=== PATIENT | male | born 1965 | race Caucasian/White ===

== ENCOUNTER 2022-06-24 08:09 | Outpatient (CLI) | payer OTHER, SELFPAY ==
[2022-06-24 08:21] LABS: Basophils Absolute Auto 0.03 K/mm3 (0.00-0.10); Basophils Percent Auto 0.4 % (0.0-1.0); Eosinophils Absolute Auto 0.35 K/mm3 (0.02-0.50); Eosinophils Percent Auto 4.6 % (1.0-6.0); Hematocrit 45.3 % (40.0-54.0); Hemoglobin 15.4 g/dL (14.0-18.0); Immature Granulocyte Absolute 0.05 K/mm3 (0.00-0.00); Immature Granulocyte Percent A 0.7 % (0.0-0.0); Lymphocytes Absolute Auto 1.92 K/mm3 (1.10-4.50); Lymphocytes Percent Auto 25.2 % (18.0-42.0); Mean Corpuscular Hemoglobin 32.8 pg (27.0-31.0); Mean Corpuscular Volume 96.6 fL (78.0-102.0); Mean Platelet Volume 8.8 fl (8.7-11.0); Monocytes Absolute Auto 0.73 K/mm3 (0.10-0.90); Monocytes Percent Auto 9.6 % (2.0-11.0); Neutrophils Absolute Auto 4.5 K/mm3 (1.7-7.2); Neutrophils Percent Auto 59.5 % (50.0-70.0); Platelet Count Result 149 K/mm3 (150-420); Red Blood Count 4.69 M/mm3 (4.70-6.10); White Blood Count 7.6 K/mm3 (4.8-10.8)
[2022-06-24 08:22] LABS: Add Urine Microscopic? YES; Appearance Urine Clear (Clear); Bilirubin Urine Negative (Negative); Blood Urine 1+ (Negative); Color Urine Light Yellow (Yellow); Glucose Urine UA Negative (Negative); Ketones Urine Negative (Negative); Leukocyte Esterase Ur Negative LEU/UL (Negative); Nitrate Urine Negative (Negative); Protein Urine Negative (Negative); Specific Grav Ur 1.025 (1.010-1.020); Urobilinogen Urine 0.2 mg/dL (0.2-1.0)
[2022-06-24 08:27] LABS: Bacteria Urine Noted /hpf; RBC Urine 0-2 /hpf (0-2); Squamous Epithelial Cell Urine Occasional /hpf (Few); WBC Urine None seen /hpf (0-3)
[2022-06-24 08:31] LABS: Hemoglobin A1C 5.1 % (<5.7)
[2022-06-24 09:24] LABS: Alanine Aminotransferase 22 U/L (16-63); Albumin Level 4.3 g/dL (3.4-5.0); Alkaline Phosphatase 78 U/L (46-116); Anion Gap 9 mmol/L (8-16); Aspartate Amino Transferase 17 U/L (15-37); Bilirubin,Total 0.4 mg/dL (0.00-1.00); Blood Urea Nitrogen 26 mg/dL (7-18); Carbon Dioxide 28 mmol/L (21-32); Chloride 106 mmol/L (98-108); Cholesterol 164 mg/dL (0-200); Creatine Kinase 189 U/L (39-308); Estimated Glomerular Filt Rate > 60; Free T3 2.83 pg/mL (2.18-3.98); Free T4 Free Thyroxine 0.98 ng/dL (0.76-1.46); Glucose 87 mg/dL (70-99); HDL Direct 37 mg/dL (40-60); LDL Cholesterol Calculated 115 mg/dL (<130); Osmolality Calculated 299 mOsm/kg (285-295); Potassium 4.6 mmol/L (3.5-5.1); Sodium 143 mmol/L (136-145); Thyroid Stimulating Hormone 2.38 uIU/mL (0.36-3.74); Total Protein 7.1 g/dL (6.4-8.2); Triglycerides 61 mg/dL (0-150)
== END 2022-06-24 08:10 | disposition home or self-care (01) ==
LOC: CHSLAB 08:12
PROVIDERS: PCP Internal Medicine; Visit Provider Internal Medicine
DX: E03.9 Hypothyroidism, unspecified (principal); R73.01 Impaired fasting glucose; E78.2 Mixed hyperlipidemia
CPT/HCPCS: 36415; 80053; 80061; 81001; 82550; 83036; 84439; 84443; 84481; 85025

== ENCOUNTER 2022-07-01 10:18 | Outpatient (CLI) | payer OTHER, SELFPAY ==
[2022-07-01 10:42] LABS: Add Urine Microscopic? YES; Appearance Urine Clear (Clear); Bilirubin Urine Negative (Negative); Blood Urine Trace-Intact (Negative); Color Urine Light Yellow (Yellow); Glucose Urine UA Negative (Negative); Ketones Urine Negative (Negative); Leukocyte Esterase Ur Negative LEU/UL (Negative); Nitrate Urine Negative (Negative); Protein Urine Negative (Negative); Specific Grav Ur 1.025 (1.010-1.020); Urobilinogen Urine 0.2 mg/dL (0.2-1.0); pH Urine 6.5 (5.0-8.0)
[2022-07-01 11:03] LABS: Bacteria Urine Trace /hpf; RBC Urine 0-2 /hpf (0-2); Squamous Epithelial Cell Urine Rare /hpf (Few); WBC Urine None seen /hpf (0-3)
== END 2022-07-01 10:19 | disposition home or self-care (01) ==
LOC: CHSLAB 10:20
PROVIDERS: PCP Internal Medicine; Visit Provider Internal Medicine
DX: R31.9 Hematuria, unspecified (principal)
CPT/HCPCS: 81001; 88112

== ENCOUNTER 2022-07-08 11:32 | Outpatient (CLI) | payer OTHER, SELFPAY ==
[2022-07-08 11:43] LABS: Appearance Urine Clear (Clear); Bilirubin Urine Negative (Negative); Blood Urine Trace-Intact (Negative); Glucose Urine UA Negative (Negative); Ketones Urine Negative (Negative); Leukocyte Esterase Ur Negative (Negative); Nitrate Urine Negative (Negative); Protein Urine Negative (Negative); Urobilinogen Urine 0.2 mg/dL (0.2-1.0)
[2022-07-08 11:51] LABS: Add Urine Microscopic? YES; Bacteria Urine None seen /hpf; Color Urine Light Yellow (Yellow); RBC Urine 0-2 /hpf (0-2); WBC Urine None seen /hpf (0-3)
== END 2022-07-08 11:33 | disposition home or self-care (01) ==
LOC: CHSLAB 11:34
PROVIDERS: PCP Internal Medicine; Visit Provider Internal Medicine
DX: R31.9 Hematuria, unspecified (principal)
CPT/HCPCS: 81001

== ENCOUNTER 2022-07-21 16:08 | Outpatient (CLI) | payer OTHER, SELFPAY ==
--- NOTE | ~2022-07-21 | CT_ITS ---
EXAMINATION: CT lung screening DATE: 07/21/2022 16:29 INDICATION: Lung cancer screening. History of tobacco dependence. TECHNIQUE: Computed tomography (CT) of the chest was performed without intravenous contrast. The dose -length product was 174.75 mGy-cm. Automated exposure control and iterative reconstruction technique were employed. COMPARISON: None FINDINGS: No significant pleural or pericardial effusion. There is atherosclerosis of the aorta and c oronary arteries. No evidence for aortic aneurysm. Calcified granuloma left lower lobe posteriorly. T here are calcified granulomas of the spleen. No thoracic lymphadenopathy. No endobronchial lesions. T here is calcified granuloma right upper lobe. No noncalcified pulmonary nodules are identified. No en dobronchial lesions. No pneumothorax. No focal airspace consolidation. Mild thoracic spondylosis no a cute osseous abnormality. IMPRESSION: 1. Lung-RADS category 1: Negative. Continue annual screening with noncontrast low-dose chest CT in 12 months. Reviewed, dictated and finalized at location A. RTILITY NURSE IMPRESSION: 1. Lung-RADS category 1: Negative. Continue annual screening with noncontrast l ow-dose chest CT in 12 months.
== END 2022-07-21 16:09 | disposition home or self-care (01) ==
LOC: CHSIMG 16:10
PROVIDERS: PCP Internal Medicine; Visit Provider Internal Medicine
DX: Z12.2 Encounter for screening for malignant neoplasm of respiratory organs (principal); Z87.891 Personal history of nicotine dependence
CPT/HCPCS: 71271

== ENCOUNTER 2022-08-17 08:02 | Outpatient (CLI) | payer OTHER, SELFPAY ==
--- NOTE | ~2022-08-17 | MR_ITS ---
EXAMINATION: MR knee RT wo con DATE: 08/17/2022 09:01 INDICATION: 2 weeks of right knee pain TECHNIQUE: Magnetic resonance imaging (MRI) of the right knee was performed without intravenous contr ast. Sequences included coronal PD-weighted FSE, coronal PD-weighted FS FSE, sagittal T2-weighted FS E, sagittal PD-weighted FS FSE and axial PD weighted fat saturated FSE. COMPARISON: None. FINDINGS: Medial compartment: Complex tear of the medial meniscus which includes both a longitudinal horizontal tear plane extendin g to the inferior articular surface as well as a vertical parrot beak configuration tear extending fr om the inner free edge at the posterior body extending posteriorly and medially to the peripheral thi rd in the posterior horn. Articular cartilage appears normal. There is mild marrow edema along the po sterior medial rim of the medial tibial plateau which could be due to either overlying chondromalacia or more likely stress reaction related to altered weight distribution resulting from the meniscal te ar. Lateral compartment: Lateral meniscus is normal. Articular cartilage is normal. Patellofemoral compartment: Mild partial-thickness chondral fissuring at the patellar apical ridge and medial facet. Trochlear ca rtilage is normal. Ligaments and tendons: Anterior and posterior cruciate ligaments are normal. The medial collateral ligament and fibular joe ateral ligament complex are normal. The extensor mechanism is normal. The visualized medial and later al hamstring tendons as well as the iliotibial band are normal. Fluid: Small knee joint effusion at the suprapatellar pouch. There is also a 4.6 x 1.9 x 1.5 cm Albrecht's cyst . No loose osteochondral bodies identified. Osseous/other: Bone alignment is normal. No fracture or pathologic marrow replacing process. IMPRESSION: 1. Complex medial meniscal tear. 2. Mild patellofemoral osteoarthritis with partial-thickness chondral fissuring at the patellar apica l ridge and medial facet. 2. Small right knee joint effusion and moderate-sized Albrecht's cyst. Reviewed, dictated and finalized at location L. IMPRESSION: 1. Complex medial meniscal tear. 2. Mild patellofemoral osteoarthritis with partial-thickness chondral fissuring at the patellar apical ridge and medial facet. 2. Small right knee joint effusion and moderate-sized Albrecht's cyst.
== END 2022-08-17 08:03 | disposition home or self-care (01) ==
LOC: CHSIMG 08:04
PROVIDERS: PCP Internal Medicine
DX: M25.561 Pain in right knee (principal); S83.231A Complex tear of medial meniscus, current injury, right knee, initial encounter; M17.11 Unilateral primary osteoarthritis, right knee; M25.461 Effusion, right knee; M71.21 Synovial cyst of popliteal space [Baker], right knee
CPT/HCPCS: 73721

== ENCOUNTER 2022-08-21 00:23 | Day surgery (SDC) | payer OTHER, SELFPAY ==
[2022-08-14 12:48] VITALS: BMI 30.4
[2022-08-21 08:42] VITALS: BMI 29.7
[2022-08-21 08:43] VITALS: BP 133/88; PULSE 82; RESP 16; TEMP 36.3; O2SAT 100
[2022-08-21] MEDS: LACTATED RINGERS 1,000 ML 150 ML IV CONT (09:00)
--- NOTE | 2022-08-21 09:15 | PM.HPGS ---
History of Present Illness History of Present Illness Consent: Risks, benefits, and alternatives have been discussed and questions answered. Patient agrees to proceed with procedure. Chief complaint: hx colon polyps Narrative: Cody Peterson is a 57 year old male Presents for screening colonoscopy. Patient's current weight appetite and bowel movements are normal. Patient denies abdominal pain. He has had no bleeding. Family history noncontributory. Previous colonoscopy 2018 revealed a benign adenomatous colon polyp. Patient presents today for neoplasia screening. Review of Systems Review of Systems: Review of systems noncontributory. [facility] Social History Social History Smoking packs per day: 1 Smoking cigarettes per day: 20.0 Years smoked: 15 Smoking pack-years: 15.00 Smoking status: Current every day smoker Tobacco type: cigarettes Alcohol intake: never Substance use: never Substance use type: does not use Living arrangements: with family Spiritual care concerns: No Meds Home Medications and Allergies Home Medications Medication Instructions Recorded Confirmed Type atorvastatin 10 mg tablet 10 mg PO DAILY 08/14/22 08/21/22 History glucosamine sulfate 500 mg tablet 500 mg PO DAILY 08/14/22 08/21/22 History (Glucosamine) levothyroxine 175 mcg tablet 175 mcg PO DAILY 08/14/22 08/21/22 History naproxen 250 mg tablet 250 mg PO BID 08/14/22 08/21/22 History Allergies Allergy/AdvReac Type Severity Reaction Status Date / Time No Known Allergies Allergy Verified 08/21/22 08:40 Vital Signs Vital Signs - 24 hr 08/21/22 08:43 Temperature 97.4 F L Pulse Rate 82 Respiratory Rate 16 Blood Pressure 133/88 Pulse Oximetry 100 Oxygen Delivery Room Air Exam Narrative: Physical exam reveals patient to be alert. Vital signs stable. HEENT exam is unremarkable. Patient is anicteric. Lungs are clear to auscultation and percussion. Heart is without murmur or extra sounds. Abdomen bowel sounds are present soft nontender with no organomegaly. Digital external rectal exam is normal. Assessment and Plan Assessment and plan (1) Encounter for screening colonoscopy: Code(s): Z12.11 - Encounter for screening for malignant neoplasm of colon Status: Acute Assessment and Plan: Patient presents for screening colonoscopy. Has a prior history of colon polyps. (2) History of colon polyps: Code(s): Z86.010 - Personal history of colonic polyps Status: Acute Assessment and Plan: Patient had prior benign adenomatous colon polyp 2017. Plan for surveillance colonoscopy at 5 year intervals.
--- NOTE | 2022-08-21 09:49 | P.PNAN_ITS ---
Anes - Initial Pre Proc Eval Procedure: Operation Date: 08/21/22 10:00 Proposed Procedures p Colonoscopy - Haim Ortiz MD Date/Time: 08/21/22 09:49 Surgeon: Haim Ortiz MD Pre Op Diagnosis: hx colon polyps Patient Data Age: 57 Gender: M Height: 1.85 m Weight: 102.2 kg Last Vital Signs Temp 97.4 F L 08/21/22 08:43 Pulse 82 08/21/22 08:43 Resp 16 08/21/22 08:43 BP 133/88 08/21/22 08:43 Pulse Ox 100 08/21/22 08:43 O2 Del Method Room Air 08/21/22 08:43 Allergies Allergy/AdvReac Type Severity Reaction Status Date / Time No Known Allergies Allergy Verified 08/21/22 08:40 Home Medications Medication Instructions Recorded Confirmed Type atorvastatin 10 mg tablet 10 mg PO DAILY 08/14/22 08/14/22 History glucosamine sulfate 500 mg tablet 500 mg PO DAILY 08/14/22 08/14/22 History (Glucosamine) levothyroxine 175 mcg tablet 175 mcg PO DAILY 08/14/22 08/14/22 History naproxen 250 mg tablet 250 mg PO BID 08/14/22 08/14/22 History Patient hx anesthesia problems: none Family hx anesthesia problems: none Results Review: All pre-operative results and documents have been reviewed as part of the pre- operative evaluation. PMFSH Social History Social History Smoking packs per day: 1 Smoking cigarettes per day: 20.0 Years smoked: 15 Smoking pack-years: 15.00 Smoking status: Current every day smoker Tobacco type: cigarettes Alcohol intake: never Substance use: never Substance use type: does not use Living arrangements: with family Spiritual care concerns: No Anes - Eval Final PreProcedure Day of Procedure 08/21/22 09:49 Patient weight: obese Heart: regular rate and rhythm Lungs: clear to auscultation Airway: Mallampati scale class II Neurological: alert and oriented Last oral intake: >/= 8 hours ASA classification: III Emergent: no Anesthetic plan: proceed Anesthesia type and monitoring: general GIVS and standard monitoring Results Review: All pre-operative results and documents have been reviewed as part of the pre- operative evaluation. Informed Consent: The patient's anesthetic plan and its attendant risks and benefits were discussed with the patient/family/POA. Questions were solicited and answers provided to the satisfaction of the patient/family/POA.
[2022-08-21 10:15] VITALS: BP 101/71; PULSE 70; RESP 14; O2SAT 97
[2022-08-21 10:25] VITALS: BP 101/71; PULSE 70; RESP 14; O2SAT 97
[2022-08-21 10:35] VITALS: BP 119/84; PULSE 70; RESP 20; O2SAT 100
== END 2022-08-21 10:44 | disposition home or self-care (01) ==
PROVIDERS: PCP Internal Medicine; Visit Provider Internal Medicine Gastroenterology
PROC: 0DJD8ZZ Inspection of Lower Intestinal Tract, Via Natural or Artificial Opening Endoscopic (ICD-10-PCS; CPT 45378; principal; 2022-08-21 10:00)
DX: Z12.11 Encounter for screening for malignant neoplasm of colon (principal); D12.5 Benign neoplasm of sigmoid colon; K63.5 Polyp of colon; K64.8 Other hemorrhoids; F17.210 Nicotine dependence, cigarettes, uncomplicated; E66.9 Obesity, unspecified; Z68.29 Body mass index [BMI] 29.0-29.9, adult
CPT/HCPCS: 45380; 88305; J2704; J7120

== ENCOUNTER 2022-11-27 15:04 | Outpatient (RCR) | payer OTHER, SELFPAY ==
--- NOTE | 2022-11-27 16:06 | PTOPEVAL1 ---
Assessment and note entered by Rudolph Mcdaniel Evaluation Information Assessment Status Evaluation Diagnosis right knee pain, right knee arthroscopy Onset 10/11/22 Subjective Information Pt. reports that he underwent right knee scope on 10/11/22. He states that he returned to work 2 weeks after surgery. He reports that the knee feels better than prior to surgery. He states that he still has pain with kneeling and squatting . He reports that pain is located on the inside of the right knee and front. He reports that he does some kneeling and squatting with his work and also has to climb steps frequently. He report that his goal is to reduce his right knee pain. Reported Pain Level Pain Score 3: Self Report Assessment PT Clinical Summary Pt. is a 57 year old male who enters the clinic post right knee arthroscopy. He presents with impaired strength, impaired gait and pain on this date. Continued skilled PT is indicated in order to improve these areas to allow the pt. to achieve improved comfort with all work related duties. Plan of Care Interventions Electrical Stimulation,Gait Training,Hot Pack/Cold Pack,Manual Therapy,Neuro Re-education,Patient/ Caregiver Educati,Therapeutic Activities, Therapeutic Exercise PT Services Indicated Yes Treatment Frequency and 2x/week x 8 visits Duration These treatments will address the objective and functional deficits as defined above. The patient will be advanced safely and appropriately in order for the patient to progress towards his/her prior level of function. Additional exercises will be introduced and as well as a comprehensive home exercise program upon discharge, if needed, ?to ensure carryover of functional gains achieved in the clinic. This treatment plan has been reviewed and agreement upon by the patient.
--- NOTE | 2022-11-27 16:11 | OPREHPOC ---
Outpatient Therapy Plan of Care This is a Multidisciplinary Plan of Care that may contain components documented by all disciplines (PT, OT, and ST.) PT Problem 1 PT Problem #1 Knowledge Deficit PT Goal 1 Goal Independent with a HEP addressing strength and trunk mobility Target Visit 2 PT Problem 2 PT Problem #2 Pain PT Goal 1 Goal Pt. will reduce pain to 1/10 at worst with all standing a walking activities. PT Problem 3 PT Problem #3 Impaired Gait PT Goal 1 Goal Pt. will ambulate with equal right and left stance time. Target Visit 8
--- NOTE | 2022-12-21 16:45 | PTOPDC ---
Assessment and note entered by JT File, PT Evaluation Information Assessment Status Discharge Diagnosis right knee pain, right knee arthroscopy Onset 10/11/22 Subjective Information patient reports he is still working. he reports he continues to be complicated by the activities he has to do at work. he reports he has to climb steps and ladders all day long. patient reports the L knee bothers him more than the R knee, especially with daily activities and work. he reports the L knee is arthritic. Reported Pain Level Pain Score 2: Self Report Assessment PT Clinical Summary mr. hernandez presents to skilled PT services for his 8th skilled therapy visit. as of today, he continues to have pain increased in the R knee with stairs and steps, especially at work. however , at rest his pain is nearly gone. he ambulates with antalgia favoring the L knee due to OA. he has full R knee strength and rom, but has only met goal #1. he will DC skilled PT today and continue HEP independent at home. Plan of Care PT Services Indicated Yes
--- NOTE | 2022-12-21 16:46 | OPREHPOC ---
Outpatient Therapy Plan of Care This is a Multidisciplinary Plan of Care that may contain components documented by all disciplines (PT, OT, and ST.) PT Problem 1 PT Problem #1 Knowledge Deficit PT Goal 1 Goal Independent with a HEP addressing strength and trunk mobility Target Visit 2 Progress Met PT Problem 2 PT Problem #2 Pain PT Goal 1 Goal Pt. will reduce pain to 1/10 at worst with all standing a walking activities. Progress Not Met PT Problem 3 PT Problem #3 Impaired Gait PT Goal 1 Goal Pt. will ambulate with equal right and left stance time. Target Visit 8 Progress Not Met Comment complicated by pain in the L knee, no pain in the R knee
== END 2022-12-21 14:42 | disposition home or self-care (01) ==
LOC: CHSPT 15:04
DX: Z48.89 Encounter for other specified surgical aftercare (principal); M25.561 Pain in right knee; Z98.890 Other specified postprocedural states
CPT/HCPCS: 97014; 97110; 97112; 97150; 97161; 97530; G0283

== ENCOUNTER 2023-08-21 16:11 | Outpatient (CLI) | payer OTHER, SELFPAY ==
--- NOTE | ~2023-08-21 | CT_ITS ---
CT Scan of the Chest without Contrast: Clinical Indication: Lung cancer screening, smoking history Technique: Contiguous sections were acquired throughout the chest without intravenous contrast. Dose reduction technique was used on this scan by utilizing automated exposure control and iterative recon struction technique. The dose-length product (DLP) was 179.12 mGy-cm. COMPARISON: 07/21/2022 Findings: There is no evidence of any significant mediastinal, hilar or axillary lymphadenopathy. Coronary yrn ry calcifications are present. There is no evidence of pleural or pericardial effusion. The lungs are clear, aside from calcified left lower lobe granuloma. Images through the upper abdomen reveal no abnormalities. Impression: Lung RADS 1: Negative. 12 month follow-up screening CT advised. Reviewed, dictated and finalized at location . Impression: Lung RADS 1: Negative. 12 month follow-up screening CT advised.
== END 2023-08-21 16:12 | disposition home or self-care (01) ==
LOC: CHSIMG 16:12
PROVIDERS: PCP Internal Medicine; Visit Provider Internal Medicine
DX: Z12.2 Encounter for screening for malignant neoplasm of respiratory organs (principal); Z87.891 Personal history of nicotine dependence
CPT/HCPCS: 71271

== ENCOUNTER 2024-06-28 09:25 | Outpatient (CLI) | payer OTHER, SELFPAY ==
--- OUTSIDE RECORDS SUMMARY | 2024-06-28 09:29 | XMS_ITS | Continuity of Care Document ---
Author Organization [facility] Address [address] [place] [address] [place] [address] Phone Care Team Providers Care Feed In Worker Name Role Phone Bharath Juárez MD Unavailable Unavailable Advance Directives Directive Yes / No Effective Date File Name No Information Encounters Encounter Description Practice Location Reason(s) For Visit Diagnoses Date Provider Providers Copied on Encounter [facility], [address], [place], [place], [id number], [place] tel:[phone] [facility] Professional No Information 2-200 0 rFanck Sinha. [address] [facility], [address], [place], [place], [id number], [place]. tel:[phone] Family History Family Member Type Diagnosis Age At Onset No Information Payers Payer name Insurance type Covered republican ID Authoriza tion(s) No Information Social History Type Description Quantity Date Captured Comments Sex Male Smoking Status No Information Chief Complaint And Reason For Visit No Information Reason For Referral Reason For Referral No Information History Of Present Illness Encounter Date Complaint History Of Prese nt Illness No Information Functional Status Date Functional Assessmen t No Information Instructions Date Instruction Additional Infor mation No Information Assessments Type Assessment Date No Information Patient Care Teams Name Effective Dates (start - stop) Status Members No Information
--- OUTSIDE RECORDS SUMMARY | 2024-06-28 09:29 | XMS_ITS | Referral Summary ---
Author Organization [facility] Address [address] [place] [address] Care Team Providers Care Reactor Technician Name Role Phone Hector Eng MD Primary Care Provider [phone] Allergies No known active allergies Medications levothyroxine (SYNTHROID, LEVOTHROID) 150 mcg tablet Take 150 mcg by mouth roll capper before breakfast. Active atorvastatin (LIPITOR) 10 mg tablet Take 10 mg by mouth daily. Active wode-mcfmxu-mgc jgelm-G2-K-Mn 500-400-667 mg-mg-unit capsule Take by mouth. Active aspirin 325 mg EC tablet Take 1 tablet by mouth every 12 hours until finished 30 tablet 11/07/2017 Active HYDROcodone-robert taminophen (NORCO) 5-325 mg per tabletIndicatio ns:Pain Take 1-2 tablets by mouth every 4-6 hours as needed for pain 13 tablet 11/07/2017 Active ascorbic acid (VITAMIN C) 500 mg tablet,chewable Take 1 tablet by mouth 2 times daily until finished 60 tablet/chew tab 11/07/2017 Active ondansetron (ZOFRAN) 4 mg tablet Take 1 tablet by mouth every 4-6 hours as needed for nausea 30 tablet 11/07/2017 Active Active Problems Problem Noted Date Diagnosed Date Complex tear of medial menis cus of left knee as current injury 11/05/2017 Overview (11/05/2017): Added automatically from request for surgery [id number] Social History Tobacco Use Types Packs/Day Years Used Date Smoking Tobacco: Every Day Cigarettes Smokeless Tobacco: Never Tobacco Cessation:Ready to Q uit: Yes; Counseling Given: Yes Alcohol Use Standard Drinks/Week Comments Yes 0 (1 standard drink = 0.6 oz pur e alcohol) very rarely Sex and Gender Information Value Date Recorded Sex Assigned at Not on file 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 Gender Identity Not on file Sexual Orientation Not on file Last Filed Vital Signs Vital Sign Reading Time Taken Comments Blood Pressure 147/92 12/06/2017 10:14 AM CDT Pulse 73 12/06/2017 10:14 AM CDT Temperature 36.4 ??C (97.5 ??F) 11/22/2017 12:57 PM C DT Respiratory Rate 20 11/22/2017 12:57 PM CDT Oxygen Saturation 97% 11/22/2017 12:37 PM CDT Inhaled Oxygen Concentration - - Weight 107.5 kg (237 lb) 12/06/2017 10:14 AM CDT Height 185.4 cm (6' 1 ) 12/06/2017 10:14 AM CDT Body Mass Index 31.27 12/06/2017 10:14 AM CDT Plan of Treatment Not on file [facility] Care Teams Reactor Technician Relationship Specialty Start Date End Date Hector Eng MD PCP - General Internal Medicine 4/24/18
--- OUTSIDE RECORDS SUMMARY | 2024-06-28 09:29 | XMS_ITS | Clinical Summary ---
[facility] Address [address] [place] [address] Care Team Providers Care Identity Management Developer Name Role Phone Hector Eng MD Primary Care Provider [phone] Allergies No known active allergies Medications levothyroxine (SYNTHROID, LEVOTHROID) 150 mcg tablet Take 150 mcg by mouth sample checker before breakfast. Active atorvastatin (LIPITOR) 10 mg tablet Take 10 mg by mouth daily. Active ujvn-tthzcc-npq dyhxs-D7-X-Mn 500-400-667 mg-mg-unit capsule Take by mouth. Active [...] (11/05/2017): Added automatically from request for surgery [id number] Surgical History Surgery Date Site/Laterality Comments COLONOSCOPY HERNIA REPAIR at 7 years old KNEE ARTHROSCOPY Medical History Medical History Date Comments Hypercholesteremia Thyroid disease Sleep apnea CPAP, last study 2017, patient state CPAP works for me Hypothyroidism Hypertension resolved Family History Medical History Relation Name Comments Gout Father Hypertension Father Relation Name Status Comments Father Social History Tobacco Use Types Packs/Day Years Used Date Smoking Tobacco: Every Day Cigarettes Smokeless Tobacco: Never Tobacco Cessation:Ready to Q uit: Yes; Counseling Given: Yes Alcohol Use Standard Drinks/Week Comments Yes 0 (1 standard drink = 0.6 oz pur e alcohol) very rarely Sex and Gender Information Value Date Recorded Sex Assigned at Not on file 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
[2024-06-28 09:55] LABS: Add Urine Microscopic? NO; Appearance Urine Clear (Clear); Bilirubin Urine Negative (Negative); Blood Urine Negative (Negative); Color Urine Light Yellow (Yellow); Glucose Urine UA Negative (Negative); Ketones Urine Negative (Negative); Leukocyte Esterase Ur Negative (Negative); Nitrate Urine Negative (Negative); Protein Urine Negative (Negative); Specific Grav Ur 1.015 (1.010-1.020); Urobilinogen Urine 0.2 mg/dL (0.2-1.0); pH Urine 6.5 (5.0-8.0)
[2024-06-28 09:57] LABS: Basophils Absolute Auto 0.02 K/mm3 (0.00-0.10); Basophils Percent Auto 0.3 % (0.0-1.0); Eosinophils Absolute Auto 0.24 K/mm3 (0.02-0.50); Eosinophils Percent Auto 3.8 % (1.0-6.0); Hematocrit 43.7 % (40.0-54.0); Hemoglobin 14.6 g/dL (14.0-18.0); Immature Granulocyte Absolute 0.02 K/mm3 (0.00-0.00); Immature Granulocyte Percent A 0.3 % (0.0-0.0); Lymphocytes Absolute Auto 1.85 K/mm3 (1.10-4.50); Lymphocytes Percent Auto 29.1 % (18.0-42.0); Mean Corpuscular HGB Conc 33.4 g/dL (32-36); Mean Corpuscular Hemoglobin 30.2 pg (27.0-31.0); Mean Corpuscular Volume 90.5 fL (78.0-102.0); Mean Platelet Volume 8.8 fl (8.7-11.0); Monocytes Absolute Auto 0.62 K/mm3 (0.10-0.90); Monocytes Percent Auto 9.7 % (2.0-11.0); Neutrophils Absolute Auto 3.61 K/mm3 (1.70-7.20); Neutrophils Percent Auto 56.8 % (50.0-70.0); Platelet Count Result 157 K/mm3 (150-420); Red Blood Count 4.83 M/mm3 (4.70-6.10); Red Cell Distribution Width 12.5 % (11.6-14.4); White Blood Count 6.4 K/mm3 (4.8-10.8)
[2024-06-28 10:54] LABS: Alanine Aminotransferase 43 U/L (16-63); Albumin Level 4.4 g/dL (3.4-5.0); Alkaline Phosphatase 93 U/L (46-116); Anion Gap 7 mmol/L (4-12); Aspartate Amino Transferase 15 U/L (15-37); Bilirubin,Total 0.7 mg/dL (0.00-1.00); Blood Urea Nitrogen 24 mg/dL (7-18); Calcium 9.4 mg/dL (8.5-10.1); Carbon Dioxide 29 mmol/L (21-32); Chloride 106 mmol/L (98-108); Cholesterol 159 mg/dL (0-200); Estimated Glomerular Filt Rate > 60; Glucose 90 mg/dL (70-99); HDL Direct 46 mg/dL (40-60); LDL Cholesterol Calculated 100 mg/dL (<130); Osmolality Calculated 298 mOsm/kg (285-295); Potassium 4.5 mmol/L (3.5-5.1); Prostate Specific Antigen 4.7 ng/mL (< OR = 4.0); Sodium 142 mmol/L (136-145); Thyroid Stimulating Hormone 0.02 uIU/mL (0.36-3.74); Total Protein 6.8 g/dL (6.4-8.2); Triglycerides 66 mg/dL (0-150); Uric Acid 6.6 mg/dL (3.5-7.2)
[2024-06-28 11:12] LABS: CRP < 0.5 mg/dL (0.0-0.9)
== END 2024-06-28 09:26 | disposition home or self-care (01) ==
PROVIDERS: PCP Internal Medicine; Visit Provider Internal Medicine
DX: Z00.00 Encounter for general adult medical examination without abnormal findings (principal); E78.5 Hyperlipidemia, unspecified; M13.0 Polyarthritis, unspecified
CPT/HCPCS: 36415; 80053; 80061; 81003; 84153; 84443; 84550; 85025; 86140; G0103

== ENCOUNTER 2025-05-27 09:56 | Outpatient (CLI) | payer OTHER, SELFPAY ==
--- NOTE | 2025-05-27 10:02 | ECG_ITS ---
Test Date: 2025-05-27 10:07:40 Measurements Intervals [place] Rate: 63 P: 50 [place]: 177 QRS: 72 QRSD: 90 T: 36 QT: 381 QTc: 391 Interpretive Statements SINUS RHYTHM MINIMAL Q WAVES- INFERIOR LEADS BORDERLINE ECG No previous ECG available for comparison Electronically Signed On 05-27-2025 11:34:56 ENGINEERING DOCUMENTATION SPECIALIST by Saeid Cormier D.O.
--- OUTSIDE RECORDS SUMMARY | 2025-05-27 10:02 | XMS_ITS | Clinical Summary ---
Author Organization [facility] Address [address] [place] [address] Care Team Providers Care [employer] Name Role Phone Hector Eng MD Primary Care Provider [phone] Allergies No known active allergies Medications levothyroxine (SYNTHROID, LEVOTHROID) 150 mcg tablet Take 150 mcg by mouth early head start director before breakfast. Active atorvastatin (LIPITOR) 10 mg tablet Take 10 mg by mouth daily. Active zcgy-ddweyq-lzi dxdcm-E0-A-Mn 500-400-667 mg-mg-unit capsule Take by mouth. 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 Gender Identity Not on file Sexual Orientation Not on file Last Filed Vital Signs Vital Sign Reading Time Taken Comments Blood Pressure 147/92 12/06/2017 10:14 AM CDT Pulse 73 12/06/2017 10:14 AM CDT Temperature 36.4 C (97.5 F) 11/22/2017 12:57 PM CDT Respiratory Rate 20 11/22/2017 12:57 PM CDT Oxygen Saturation 97% 11/22/2017 12:37 PM CDT Inhaled Oxygen Concentration - - Weight 107.5 kg (237 lb) 12/06/2017 10:14 AM CDT Height 185.4 cm (6' 1) 12/06/2017 10:14 AM CDT Body Mass Index 31.27 12/06/2017 10:14 AM CDT Plan of Treatment Not on file Insurance [facility] PPO Care Teams [employer] Relationship Specialty Start Date End Date Hector Eng MD PCP - General Internal Medicine 09/25/17
== END 2025-05-27 09:57 | disposition home or self-care (01) ==
PROVIDERS: PCP Internal Medicine; Visit Provider Internal Medicine
DX: I10 Essential (primary) hypertension (principal); E78.5 Hyperlipidemia, unspecified
CPT/HCPCS: 93005